=== PATIENT | male | born 1980 | race Hispanic/Latino ===

== ENCOUNTER 2017-08-13 11:15 | Emergency (ER) | payer SELFPAY ==
[2017-08-13 17:08] LABS: Bilirubin,Urine NEG (Negative); Blood,Urine MOD (Negative); Color,Urine Yellow (Yellow); Mucus,Urine 1+ /HPF; Protein,Urine <15 mg/dL mg/dL (Negative)
== END 2017-08-13 14:00 | disposition home or self-care (01) ==
LOC: ED 11:15
DX: A60.00 Herpesviral infection of urogenital system, unspecified (principal)
CPT/HCPCS: 81001

== ENCOUNTER 2018-06-09 02:45 | Emergency (ER) | payer SELFPAY ==
--- NOTE | 2018-06-09 05:05 | Emergency Department Report ---
ED Rash HPI - HPI Chief Complaint: Skin Rash Stated Complaint: BODY RASH Time Seen by Provider: 06/09/18 04:20 Duration: over one year Location: Other (has bilateral onychomycosis to toes do not respond thing to the episodic treatments. He has received in the emergency department over the past year to year and a half. He was previously here on 's [place] when he was assessed to have a fungal infection to his legs and toes treated accordingly with griseofulvin and ketoconazole. States that he noticed some mild improvement but then the medication ran out. The rest begin to reemerge according to his research. He believes he has developed balanitis of a candidal origin. He thinks that has spread to his legs and feet is well known would like to receive more anti-fungal medication enough to last for 6) Rash Symptoms: Yes Itching, No Facial Swelling, No Tongue/Oral Swelling, No Breathing Difficulties, No Choking Sensation, No Wheezing/Dyspnea, No Peeling, No Blistering Severity: mild ED Review of Systems ROS: Stated complaint: BODY RASH Other details as noted in HPI Constitutional: denies: chills, fever Eyes: denies: eye pain, eye discharge, vision change ENT: denies: ear pain, throat pain Respiratory: denies: cough, shortness of breath, wheezing Cardiovascular: denies: chest pain, palpitations Endocrine: no symptoms reported Gastrointestinal: denies: abdominal pain, nausea, diarrhea Genitourinary: denies: urgency, dysuria Musculoskeletal: denies: back pain, joint swelling, arthralgia Skin: rash. denies: lesions Neurological: denies: headache, weakness, paresthesias Psychiatric: denies: anxiety, depression Hematological/Lymphatic: denies: easy bleeding, easy bruising ED Past Medical Hx - Past Medical History Previous Medical History?: Yes - Surgical History Past Surgical History?: Yes Additional Surgical History: GINGER 1997 - Social History Smoking Status: Light Tobacco Smoker Substance Use Type: None - Medications Home Medications: Home Medications Medication Instructions Recorded Confirmed Last Taken Type Griseofulvin Ultramicrosize 250 mg PO TID #21 tablet 05/31/18 Unknown Rx Ketoconazole 2% [Nizoral] 1 applicatio TP TID #1 tube 05/31/18 Unknown Rx Clotrimazole/Betamethasone Dip 1 applicatio TP BID #90 cream..g. 06/09/18 Unknown Rx [Lotrisone Cream] Fluconazole [Diflucan] 200 mg PO DAILY #14 tablet 06/09/18 Unknown Rx Rash Exam - Exam General: Vital signs noted. No distress. Alert and acting appropriately. HEENT: No Periorbital Edema, No Conjuctival Injection, No Chemosis, No Perioral Edema, No Tongue Edema, No Uvular Edema, No Compromised Airway, No Drooling Lungs: Yes Good Air Exchange (Normal Breath Sounds), No Wheezes, No Ronchi, No Stridor, No Cough, No Labored Respirations, No Retractions, No Use of Accessory Muscles, No Other Abnormal Lung Sounds Heart: Yes Regular, No Murmur Skin: Yes Other (obvious bilateral onychomycosis. Also has a erythematous palpable plaque-with some mild scaling type rash to his areas of his lower extremities, some macular scaly erythematous lesions to the penile area. No suggestion of any balanitis) Other: Positive: Abdomen Normal, Neurologic Normal, Musculoskeletal Normal ED Course Vital Signs 06/09/18 02:52 Temperature 97.8 F Pulse Rate 73 Respiratory 20 Rate Blood Pressure 121/78 O2 Sat by Pulse 97 Oximetry ED Medical Decision Making - Medical Decision Making Discussed the exam findings with Mr. Heredia is adamant that he has a fungal infection in his adamantly requesting more and fungal medications. - Differential Diagnosis psoriatic family rash, lupus, syphilis, nummular dermatitis Critical care attestation.: If time is entered above; I have spent that time in minutes in the direct care of this critically ill patient, excluding procedure time. ED Disposition Clinical Impression: Onychomycosis, Rash Disposition: - TO HOME OR SELFCARE Is pt being admited?: No Does the pt Need Aspirin: No Condition: Stable Instructions: Antifungals (On the skin), Miconazole (On the skin) Additional Instructions: Patient to follow-up to dermatology as you will likely require a biopsy of the rash for definitive management and treatment options. Prescriptions: Clotrimazole/Betamethasone Dip [Lotrisone Cream] 1 applicatio TP BID #90 cream..g. Fluconazole [Diflucan] 200 mg PO DAILY #14 tablet Referrals: MICKIE FERGUSON MD [Staff Physician] - 3-5 Days CUAUHTEMOC CARABALLO MD [Referring] - 3-5 Days YAIMA PEÑA MD [Staff Physician] - 3-5 Days
== END 2018-06-09 05:10 | disposition home or self-care (01) ==
LOC: ED 02:45
CPT/HCPCS: 99282